=== PATIENT | male | born 1985 | race Caucasian/White ===

== ENCOUNTER 2017-01-09 00:34 | Emergency (ER) | payer OTHER ==
[~2017-01-09] VITALS: Ht 175.3 cm; Wt 98.6 kg
[~2017-01-09 00:34] MED LIST: DAILY MULTIVIT1 EAC1 PO
[2017-01-09] MEDS ORDERED: INDOCIN50 MG PO (01:32)
[2017-01-09] MEDS ORDERED: TRAMADOL HCL50 MG PO (01:32)
[2017-01-09 01:48] VITALS: BP 121/65
== END 2017-01-09 01:48 | disposition home or self-care (01) ==
LOC: EME 00:34
DX: M25.562 Pain in left knee (principal); X50.9XXA Other and unspecified overexertion or strenuous movements or postures, initial encounter; M17.0 Bilateral primary osteoarthritis of knee; F17.200 Nicotine dependence, unspecified, uncomplicated
CPT/HCPCS: 99281; 99283

== ENCOUNTER 2017-05-22 20:08 | Emergency (ER) | payer OTHER ==
[~2017-05-22] VITALS: Ht 177.8 cm; Wt 91.6 kg
[~2017-05-22 20:08] MED LIST changes: +INDOCIN50 MG PO; +TRAMADOL HCL50 MG PO
[2017-05-22 20:23] VITALS: BP 125/82
[2017-05-22] MEDS ORDERED: NAPROSYN500 MG PO (20:28)
[2017-05-22] MEDS ORDERED: FLEXERIL10 MG PO (20:28)
[2017-05-22] MEDS ORDERED: MEDROL DOSEPAK4 MG PO (20:28)
== END 2017-05-22 20:47 | disposition home or self-care (01) ==
LOC: EME 20:08
DX: M54.41 Lumbago with sciatica, right side (principal); F17.200 Nicotine dependence, unspecified, uncomplicated
CPT/HCPCS: 99281; 99284; J1100